=== PATIENT | female | born 1955 | race Two or more races ===

== ENCOUNTER 2020-10-07 18:58 | Emergency (ER) | payer MEDICAID, OTHER ==
[~2020-10-07] VITALS: Ht 162.6 cm; Wt 70.3 kg
[2020-10-07] MEDS ORDERED: ALPRAZolam 0.5 MG TAB PO ONE (22:00)
[2020-10-07 23:05] VITALS: BP 168/86
== END 2020-10-07 23:04 | disposition home or self-care (01) ==
LOC: ER 18:58
DX: F43.9 Reaction to severe stress, unspecified (principal)

== ENCOUNTER 2020-10-11 01:21 | Emergency (ER) | payer MEDICARE, MEDICAID, OTHER ==
[~2020-10-11] VITALS: Ht 162.6 cm; Wt 70.3 kg
[2020-10-11] MEDS ORDERED: LORazepam 0.5 MG TAB PO ONE (05:45)
[2020-10-11 05:50] VITALS: BP 146/89
== END 2020-10-11 05:57 | disposition home or self-care (01) ==
LOC: EDBD 01:21 → ER 01:21
DX: F41.9 Anxiety disorder, unspecified (principal); F32.9 Major depressive disorder, single episode, unspecified; R11.2 Nausea with vomiting, unspecified; T50.905A Adverse effect of unspecified drugs, medicaments and biological substances, initial encounter; Y92.89 Other specified places as the place of occurrence of the external cause
CPT/HCPCS: 93005

== ENCOUNTER 2021-03-27 19:19 | Inpatient (IN) | payer OTHER, MEDICAID ==
[~2021-03-27] VITALS: Ht 162.6 cm; Wt 80.1 kg
[2021-03-27 20:25] LABS: Basophils # (auto) 0 10 ^3/uL (0-0.2); Basophils % (auto) 0.4 % (0.0-2.0); Eosinophils # (auto) 0.2 10 ^3/uL (0-0.8); Eosinophils % (auto) 2.5 % (0.0-7.0); Hemoglobin 13.9 g/dL (12.2-16.2); Lymphocytes # (auto) 2.1 10 ^3/uL (0.4-5.4); Lymphocytes % (auto) 21.6 % (10.0-50.0); Mean Corpuscular Hemoglobin 32.2 pg (28.0-32.0); Mean Corpuscular Hgb Conc. 34.7 g/dL (32.0-36.0); Mean Corpuscular Volume 92.6 fL (80.0-100.0); Monocytes # (auto) 0.5 10 ^3/uL (0-1.3); Monocytes % (auto) 4.9 % (0.0-12.0); Neutrophils # (auto) 6.9 10 ^3/uL (1.6-8.6); Neutrophils % (auto) 70.6 % (37.0-80.0); Nucleated Red Blood Cells % 0.1 %; Red Blood Cells 4.32 10^6/uL (4.0-5.20); Red Cell Distribution Width 13.9 % (11.8-14.3); White Blood Cell 9.8 10^3/uL (4.4-10.8)
[2021-03-27 20:41] LABS: Albumin 3.5 g/dL (3.4-5.0); Calcium 9.2 mg/dL (8.5-10.1); Potassium 4.2 mmol/L (3.5-5.1)
[2021-03-27 20:49] LABS: BUN/Creatinine Ratio 25.8; Bilirubin, Total 0.3 mg/dL (0.2-1.0)
[2021-03-27] MEDS ORDERED: ENOXAPARIN SOD 100 MG/1 ML SYRINGE SC ONE ×2 (22:00)
[2021-03-27] MEDS ORDERED: NITROGLYCERIN 0.4 MG SL TAB SL PRN (22:15)
[2021-03-27] MEDS ORDERED: MORPHINE SULFATE INJECTION 2 MG/ML SYRG IV PRN (22:15)
[2021-03-27] MEDS ORDERED: ATORVASTATIN 20 MG TAB PO ONE (22:15)
[2021-03-27] MEDS ORDERED: ONDANSETRON HCL 4 MG/2 ML VIAL IV PRN (22:15)
[2021-03-27] MEDS: SODIUM CHLORIDE 0.9% 1,000 ML IV SCH (22:32)
[2021-03-28 01:00] LABS: Cholesterol 227 mg/dL (< 200)
[2021-03-28 01:02] LABS: HDL Cholesterol 43 mg/dL (40-59); LDL Cholesterol 163 mg/dL (< 100); Triglycerides 134 mg/dL (< 150)
[2021-03-28 06:33] LABS: Basophils # (auto) 0 10 ^3/uL (0-0.2); Basophils % (auto) 0.4 % (0.0-2.0); Eosinophils # (auto) 0.2 10 ^3/uL (0-0.8); Eosinophils % (auto) 2.1 % (0.0-7.0); Hematocrit 39.8 % (36.0-46.0); Hemoglobin 13.9 g/dL (12.2-16.2); Lymphocytes # (auto) 3.2 10 ^3/uL (0.4-5.4); Lymphocytes % (auto) 37.5 % (10.0-50.0); Mean Corpuscular Hemoglobin 32.4 pg (28.0-32.0); Mean Corpuscular Hgb Conc. 34.9 g/dL (32.0-36.0); Mean Corpuscular Volume 92.9 fL (80.0-100.0); Monocytes # (auto) 0.5 10 ^3/uL (0-1.3); Monocytes % (auto) 6.2 % (0.0-12.0); Neutrophils # (auto) 4.6 10 ^3/uL (1.6-8.6); Neutrophils % (auto) 53.8 % (37.0-80.0); Nucleated Red Blood Cells % 0.1 %; Red Blood Cells 4.28 10^6/uL (4.0-5.20); Red Cell Distribution Width 13.8 % (11.8-14.3); White Blood Cell 8.6 10^3/uL (4.4-10.8)
[2021-03-28 06:39] LABS: Potassium 4.2 mmol/L (3.5-5.1)
[2021-03-28 06:45] LABS: BUN/Creatinine Ratio 21.2; Calcium 9.4 mg/dL (8.5-10.1)
[2021-03-28] MEDS ORDERED: ASPirin 81 mg TAB PO SCH (10:00)
[2021-03-28] MEDS ORDERED: IOHEXOL 350 MG/ML 100ML IJ ONE (10:12)
[2021-03-28] MEDS ORDERED: ESCI-28 PO (11:18)
[2021-03-28] MEDS ORDERED: MULT1TAB69 PO (11:18)
[2021-03-28] MEDS ORDERED: IODIXANOL 320MG/ML 100ML BTL IV ONE ×2 (11:40→11:44)
[2021-03-28] MEDS ORDERED: LIDOCAINE 2%HCL (LOCAL ANESTH.) INJ 20ML MDV ONE (11:40)
[2021-03-28] MEDS ORDERED: VERAPAMIL 2.5MG/ML INJ 2ML VIAL IV ONE (11:57)
[2021-03-28] MEDS ORDERED: ANGIOMAX 250 MG VIAL IV ONE (11:57)
[2021-03-28] MEDS ORDERED: SODIUM CHL 0.9% 50 ML ONE (11:58)
[2021-03-28] MEDS ORDERED: fentaNYL CITRATE 100 MCG/2 ML VL ONE (11:58)
[2021-03-28] MEDS ORDERED: MIDAZOLAM HCL 2MG/2ML 2ml VIAL (1mg/ml) ONE (11:58)
[2021-03-28] MEDS ORDERED: ACETAMINOPHEN 325 MG TAB PO PRN (12:15)
[2021-03-28] MEDS ORDERED: hydrALAZINE HCL 20 MG/ML VL IV PRN (12:15)
[2021-03-28] MEDS ORDERED: ONDANSETRON HCL 4 MG/2 ML VIAL IV PRN (12:15)
[2021-03-28] MEDS ORDERED: MORPHINE SULFATE INJECTION 2 MG/ML SYRG IV PRN (12:15)
[2021-03-28] MEDS ORDERED: HYDROcodone-ACET 5/325MG TAB PO PRN (12:15)
[2021-03-28] MEDS ORDERED: ATROPINE SULF 1 MG/10ml SYR ONE (12:27)
[2021-03-28] MEDS ORDERED: EPINEPHrine HCL 1 MG/10 ML SYRG ONE (12:39)
[2021-03-28] MEDS ORDERED: TICAGRELOR 90 MG TAB ONE (12:54)
[2021-03-28] MEDS: SODIUM CHLOR 0.9% PF (SALINE LOCK) 10ML VIAL/SYR IV SCH ×2 (14:47→22:33)
[2021-03-28 15:30] VITALS: BP 111/67
[2021-03-28 17:23] VITALS: BP 109/69
[2021-03-28] MEDS: SODIUM CHLORIDE 0.9% 1,000 ML IV SCH (18:52)
[2021-03-28] MEDS: PANTOPRAZOLE 40 MG TAB PO SCH (19:44)
[2021-03-28 22:00] VITALS: BP 121/59
[2021-03-28] MEDS ORDERED: ATORVASTATIN 20 MG TAB PO SCH ×2 (22:00)
[2021-03-28] MEDS: TICAGRELOR 90 MG TAB PO SCH (22:32)
[2021-03-29] MEDS: SODIUM CHLORIDE 0.9% 1,000 ML IV SCH ×2 (04:09→14:15)
[2021-03-29 05:00] VITALS: BP 114/40
[2021-03-29] MEDS: SODIUM CHLOR 0.9% PF (SALINE LOCK) 10ML VIAL/SYR IV SCH ×2 (06:18→14:00)
[2021-03-29 06:19] LABS: Calcium 9.2 mg/dL (8.5-10.1); Potassium 3.8 mmol/L (3.5-5.1)
[2021-03-29 06:20] LABS: Basophils # (auto) 0 10 ^3/uL (0-0.2); Basophils % (auto) 0.2 % (0.0-2.0); Eosinophils # (auto) 0.1 10 ^3/uL (0-0.8); Eosinophils % (auto) 1.7 % (0.0-7.0); Hematocrit 38.9 % (36.0-46.0); Hemoglobin 13.7 g/dL (12.2-16.2); Lymphocytes # (auto) 2.1 10 ^3/uL (0.4-5.4); Lymphocytes % (auto) 26.6 % (10.0-50.0); Mean Corpuscular Hemoglobin 32.5 pg (28.0-32.0); Mean Corpuscular Hgb Conc. 35.1 g/dL (32.0-36.0); Mean Corpuscular Volume 92.6 fL (80.0-100.0); Monocytes # (auto) 0.5 10 ^3/uL (0-1.3); Monocytes % (auto) 6.1 % (0.0-12.0); Neutrophils # (auto) 5.1 10 ^3/uL (1.6-8.6); Neutrophils % (auto) 65.4 % (37.0-80.0); Red Cell Distribution Width 13.8 % (11.8-14.3); White Blood Cell 7.7 10^3/uL (4.4-10.8)
[2021-03-29 06:21] LABS: BUN/Creatinine Ratio 23.3
[2021-03-29 09:00] VITALS: BP 144/69
[2021-03-29] MEDS ORDERED: ASPirin 81 mg TAB PO SCH (10:00)
[2021-03-29] MEDS ORDERED: PATIENTS OWN MEDICATION PO SCH (10:00)
[2021-03-29] MEDS ORDERED: CITALOPRAM HYDROBR 20 MG TAB PO SCH (10:00)
[2021-03-29] MEDS: TICAGRELOR 90 MG TAB PO SCH (10:16)
[2021-03-29] MEDS: PANTOPRAZOLE 40 MG TAB PO SCH (10:17)
[2021-03-29 13:00] VITALS: BP 124/68
[2021-03-29] MEDS ORDERED: ASPI1CHW15 PO (14:05)
[2021-03-29] MEDS ORDERED: ATOR20TA50 PO (14:05)
[2021-03-29] MEDS ORDERED: TICA90TA PO (14:05)
[2021-03-29 17:00] VITALS: BP 142/74
== END 2021-03-29 18:15 | disposition home or self-care (01) | DRG 248 ==
LOC: ER 19:19 → EDBD 19:19 → TELE 22:15 → TELE-CENTR 03-28 17:23
PROVIDERS: ADMIT Nurse Practitioner; ATTEND Internal Medicine
PROC: B211YZZ Fluoroscopy of Multiple Coronary Arteries using Other Contrast (ICD-10-PCS; principal; 2021-03-28)
PROC: 02703DZ Dilation of Coronary Artery, One Artery with Intraluminal Device, Percutaneous Approach (ICD-10-PCS; 2021-03-28)
DX: I21.4 Non-ST elevation (NSTEMI) myocardial infarction (principal); I50.33 Acute on chronic diastolic (congestive) heart failure; E11.65 Type 2 diabetes mellitus with hyperglycemia; F32.9 Major depressive disorder, single episode, unspecified; F41.9 Anxiety disorder, unspecified; I11.0 Hypertensive heart disease with heart failure; E78.5 Hyperlipidemia, unspecified; Z20.822 Contact with and (suspected) exposure to COVID-19
CPT/HCPCS: 36415; 71045; 71275; 80048; 80053; 80061; 83735; 83880; 84443; 84484; 85025; 87426; 92928; 93005; 93306; 93458; 96372; 99152; 99153; G0378; J2250; Q9967